=== PATIENT | male | born 1940 ===

== ENCOUNTER 2021-06-24 00:03 | Inpatient (IN) | payer MEDICARE, BC ==
[~2021-06-24] VITALS: Ht 172.7 cm; Wt 96.4 kg
--- NOTE | 2021-06-24 00:59 | NUR ---
PT WHEELED TO ROOM. PA TO ASSES AND ORDERS RECEIVED. PT TAKEN TO CT SCAN AND BROUGHT BACK, NO ACUTE DISTRESS. PTS CALLED SHE IS HIS POWER OF HOME HEALTH TRAVEL PT, AND CALLED FOR UPDATES. PTS UPDATED TO TREATMENT AND CARE AND V/U.
[2021-06-24] MEDS ORDERED: SODIUM CHLORIDE FLUSH 10ML SYR IVF ONE (01:00)
[2021-06-24] MEDS ORDERED: SODIUM CHLORIDE 0.9% 1,000ML IVBOLUS ONE (01:00)
--- NOTE | 2021-06-24 01:04 | NUR ---
PORTABLE HIP XRAY DONE, AND PT TOLERATED WELL.
--- NOTE | 2021-06-24 01:13 | NUR ---
PIV TO RIGHT HAND X1 ATTEMPT, 18G CATH. BLOOD DRAWN AND SENT TO LAB. PIV FLUSHED EASILY AND SECURED WELL. PT TOLERATED WELL. PT PROVIDED WARM BLANKETS AND SIDERAILS ARE UP X2 AND CALL LIGHT WITHIN REACH. PT ADVISED THAT HIS CALLED AND THAT SHE WAS UPDATED. AND PT V/U.
[2021-06-24 01:30] LABS: ALANINE AMINOTRANSFERASE 41 U/L (12-78); ALBUMIN 3.1 g/dL (3.4-5.0); ANION GAP 4 mmol/L (5-15); BASOPHILS % (AUTO) 0 % (0-1); CALCIUM 8.5 mg/dL (8.5-10.1); CHLORIDE 109 mmol/L (98-107); CREATININE 1.17 mg/dL (0.7-1.3); EOSINOPHILS % (AUTO) 1 % (1-7); LYMPHOCYTES % (AUTO) 21 % (22-44); MEAN CORPUSCULAR HEMOGLOBIN 33.6 pg (27.5-34.5); MEAN CORPUSCULAR HGB CONC 34.8 g/dL (33.2-36.2); MEAN PLATELET VOLUME 8.6 fL (7.4-10.4); MONOCYTES % (AUTO) 8 % (2-9); NEUTROPHILS % (AUTO) 70 % (42-75); PLATELET COUNT 209 x10^3/uL (130-400); RED BLOOD COUNT 4.82 x10^6/uL (4.38-5.82); RED CELL DISTRIBUTION WIDTH 13.3 % (9.4-14.8)
[2021-06-24 01:34] LABS: ALKALINE PHOSPHATASE 78 U/L (45-117); BILIRUBIN,TOTAL 0.4 mg/dL (0.2-1.0); TOTAL PROTEIN 6.9 g/dL (6.4-8.2); TROPONIN I < 0.015 ng/mL (0.000-0.045)
--- NOTE | 2021-06-24 01:57 | NUR ---
PTS PHONE NUMBER: [phone] [place].
[2021-06-24] MEDS ORDERED: CEFTRIAXONE 1,000 MG in DEXTROSE 5% 50 ML IVPB ONE (02:00)
[2021-06-24] MEDS ORDERED: AZITHROMYCIN 500 MG in SODIUM CHLORIDE 0.9% 250 ML IV ONE (02:00)
--- NOTE | 2021-06-24 02:02 | NUR ---
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
--- NOTE | 2021-06-24 02:17 | NUR ---
PT HAD BLOOD CULTURES X2 DRAWN, AND ANTIBIOTICS STARTED AFTERWARDS. PT RESTING COMFORTABLY AND PTS WAS CALLED TO UPDATE HER THAT PT WILL BE STAYING TONIGHT ADMITTED. PTS ASKED THIS RN TO LET THE PT KNOW THAT SHE WASN'T COMING DOWN TO THE HOSPITAL NOT BECAUSE SHE DIDN'T WANT TO, BUT BECAUSE OUR VISITING PROTOCOLS WON'T ALLOW HER TO COME AT NIGHT, UNTIL 8AM BUT SHE WILL BE HERE THEN. PT UNDERSTANDS.
--- NOTE | 2021-06-24 03:25 | NUR ---
REPORT CALLED TO FLOOR RN, AND PT TRANSFERRED TO FLOOR WITHOUT INCIDENT. PT CALM AND COOPERATIVE. PIV INTACT, NO SWELLING OR REDNESS AND ANTIBIOTICS INFUSING. AZITHROMAX ANTIBIOTIC BAG TAKEN TO FLOOR FOR FLOOR RN TO HANG IT'S BEEN SPIKED AND IS TO FOLLOW THE [facility]
[2021-06-24 04:20] VITALS: BP 140/88
[2021-06-24] MEDS ORDERED: ENALAPRILAT 1.25 MG/ML, 2ML IVPush PRN (05:30)
[2021-06-24] MEDS ORDERED: ACETAMINOPHEN 325 MG TABLET PO PRN (05:30)
[2021-06-24 07:06] VITALS: BP 149/86
[2021-06-24] MEDS: ENOXAPARIN 40 MG/0.4 ML SQ SCH (09:26)
[2021-06-24] MEDS ORDERED: DOXE100C PO (11:26)
[2021-06-24] MEDS ORDERED: AMLO-210 PO (11:26)
[2021-06-24] MEDS ORDERED: TEMA15CA PO (11:26)
[2021-06-24] MEDS ORDERED: TRAZ-175 PO (11:26)
[2021-06-24] MEDS ORDERED: CHOL500015 PO (11:26)
[2021-06-24 12:44] LABS: MICROSCOPIC INDICATED
[2021-06-24 13:25] VITALS: BP 134/73
[2021-06-24] MEDS ORDERED: LORazepam 2 MG/ML, 1ML IVPush PRN (18:30)
[2021-06-24 20:21] VITALS: BP 181/87
[2021-06-24 21:18] LABS: CLOSTRIDIUM DIFFICILE ANTIGEN NEGATIVE; CLOSTRIDIUM DIFFICILE TOXIN NEGATIVE (Negative)
[2021-06-24] MEDS: TRAZODONE 150MG TABLET PO SCH (22:32)
[2021-06-24] MEDS: TEMAZEPAM 15 MG CAPSULE PO SCH (22:32)
[2021-06-24] MEDS: AMLODIPINE 5 MG TABLET PO SCH (22:33)
[2021-06-25] MEDS: CEFTRIAXONE 1,000 MG in DEXTROSE 5% 50 ML IVPB SCH (04:47)
[2021-06-25 04:51] VITALS: BP 140/86
[2021-06-25] MEDS: AZITHROMYCIN 500 MG in SODIUM CHLORIDE 0.9% 250 ML IV SCH (05:14)
[2021-06-25 06:11] LABS: BASOPHILS % (AUTO) 1 % (0-1); EOSINOPHILS % (AUTO) 1 % (1-7); LYMPHOCYTES % (AUTO) 21 % (22-44); MEAN CORPUSCULAR HEMOGLOBIN 33.2 pg (27.5-34.5); MEAN CORPUSCULAR HGB CONC 34.6 g/dL (33.2-36.2); MEAN PLATELET VOLUME 8.7 fL (7.4-10.4); MONOCYTES % (AUTO) 8 % (2-9); NEUTROPHILS % (AUTO) 68 % (42-75); PLATELET COUNT 201 x10^3/uL (130-400); RED BLOOD COUNT 4.77 x10^6/uL (4.38-5.82); RED CELL DISTRIBUTION WIDTH 13.3 % (9.4-14.8)
[2021-06-25 06:24] LABS: ANION GAP 6 mmol/L (5-15); CHLORIDE 105 mmol/L (98-107)
[2021-06-25 06:29] LABS: ALANINE AMINOTRANSFERASE 44 U/L (12-78); ALKALINE PHOSPHATASE 71 U/L (45-117); BILIRUBIN,TOTAL 0.7 mg/dL (0.2-1.0); CREATININE 1.02 mg/dL (0.7-1.3); TOTAL PROTEIN 6.7 g/dL (6.4-8.2)
[2021-06-25] MEDS: ENOXAPARIN 40 MG/0.4 ML SQ SCH (09:47)
[2021-06-25 10:05] VITALS: BP 139/67
[2021-06-25 15:45] VITALS: BP 167/72
[2021-06-25 18:48] VITALS: BP 158/87
[2021-06-25] MEDS: TRAZODONE 150MG TABLET PO SCH (21:00)
[2021-06-25] MEDS: TEMAZEPAM 15 MG CAPSULE PO SCH (22:24)
[2021-06-25] MEDS: AMLODIPINE 5 MG TABLET PO SCH (22:24)
[2021-06-26 01:05] VITALS: BP 138/86
[2021-06-26] MEDS: CEFTRIAXONE 1,000 MG in DEXTROSE 5% 50 ML IVPB SCH (04:51)
[2021-06-26] MEDS: AZITHROMYCIN 500 MG in SODIUM CHLORIDE 0.9% 250 ML IV SCH (05:35)
[2021-06-26 10:00] VITALS: BP 172/92
[2021-06-26] MEDS: ENOXAPARIN 40 MG/0.4 ML SQ SCH (10:08)
[2021-06-26] MEDS ORDERED: AMOX500T PO (11:18)
[2021-06-26] MEDS ORDERED: AZIT250T PO (11:18)
[2021-06-26 12:27] VITALS: BP 178/81
== END 2021-06-26 15:37 | disposition home health service (06) | DRG 189 ==
LOC: ED 00:30 → EDIP 02:13 → 3N 03:49
PROVIDERS: ADMIT Family Medicine; ATTEND Family Medicine
PROC: 0T9B70Z Drainage of Bladder with Drainage Device, Via Natural or Artificial Opening (ICD-10-PCS; principal; 2021-06-24)
DX: J96.01 Acute respiratory failure with hypoxia (principal); J18.9 Pneumonia, unspecified organism; G93.41 Metabolic encephalopathy; I10 Essential (primary) hypertension; G47.00 Insomnia, unspecified; Z66 Do not resuscitate; F03.90 Unspecified dementia, unspecified severity, without behavioral disturbance, psychotic disturbance, mood disturbance, and anxiety; Z20.822 Contact with and (suspected) exposure to COVID-19; Z78.1 Physical restraint status
CPT/HCPCS: 36415; 70450; 70551; 71045; 72170; 80053; 80320; 81001; 84145; 84443; 84484; 85025; 87040; 87324; 93005; 96365; 99285; G0378; J0456; J0696; J1650; U0005; G0480; J2060; J7030; J7050; U0003